=== PATIENT | male | born 2005 | race Caucasian/White ===

== ENCOUNTER 2024-05-17 10:31 | Emergency (ER) | payer BC ==
[~2024-05-17] VITALS: Ht 177.8 cm; Wt 74.8 kg
[2024-05-17 10:42] VITALS: BP 99/55; PULSE 130; RESP 15; TEMP 103; O2SAT 96
[2024-05-17] MEDS ORDERED: TORADOL ONE (10:51)
[2024-05-17] MEDS ORDERED: ZOFRAN ODT ONE (10:51)
[2024-05-17] MEDS: TORADOL IM STA (10:56)
[2024-05-17] MEDS: ZOFRAN ODT SL STA (10:56)
[2024-05-17 11:42] VITALS: BP 123/63; PULSE 113; RESP 16; O2SAT 93
[2024-05-17 11:52] LABS: INFLUENZA VIRUS B ANTIGEN NEGATIVE (NEG)
[2024-05-17 11:53] LABS: INFLUENZA VIRUS A ANTIGEN POSITIVE (NEG)
== END 2024-05-17 12:16 | disposition home or self-care (01) ==
LOC: ER 10:31
DX: J10.1 Influenza due to other identified influenza virus with other respiratory manifestations (principal); Z20.822 Contact with and (suspected) exposure to COVID-19
CPT/HCPCS: 99284; 87426; 96372; 87804 ×2; 93005; J1885